=== PATIENT | female | born 1940 | race Caucasian/White ===

== ENCOUNTER 2018-04-30 06:29 | Observation (INO) ==
[2018-04-30] MEDS ORDERED: Aspirin 325 MG TABLET PO ONE (06:53)
[2018-04-30 07:05] LABS: Basophils % 0.3 %; Eosinophils # 0.2 K/mcL (0.0-0.6); Eosinophils % 2.2 %; Hematocrit 35.1 % (35.3-44.9); Immature Granulocytes % 0.3 % (0-4); Lymphocytes # 1.6 K/mcL (0.6-4.6); Lymphocytes % 18.3 %; Mean Corpuscular HGB Conc 34.2 g/dL (31.6-35.5); Mean Corpuscular Hemoglobin 33.2 pg (28.0-33.3); Mean Corpuscular Volume 97.2 fL (83.0-100.0); Mean Platelet Volume 10.1 fL (9.4-12.4); Monocytes # 0.6 K/mcL (0.0-1.3); Monocytes % 7.5 %; Neutrophils # 6.1 K/mcL (1.6-8.9); Platelet Count 221 K/mcL (140-400); Red Blood Count 3.61 M/mcL (3.82-4.97); Red Cell Distribution Width 11.9 % (11.5-14.5); Segmented Neutrophils % 71.4 %
--- NOTE | 2018-04-30 07:17 | Emergency Department Note ---
Disposition Clinical Impression: Chest pain due to CAD Disposition: Admitted As Inpatient Condition: Fair Chest Pain HPI - General Chief Complaint: ED Chest Pain Stated Complaint: chest pain Time Seen by Provider: 04/30/18 06:47 Source: patient Limitations: no limitations Vital Signs Reviewed: Yes Nursing Notes Reviewed: Yes - History of Present Illness HPI Narrative: 77 year old female with history of hypertension, [place] presents with chest pain. pt reported intermittent mild chest pain in exertion several times in the past one week. Yesterday morning, pt started moderated lower abdominal pain and followed with chest pain. It was aching sensation and lasted around 5 minutes. Pt felt sick whole day after the episode. Pt woke up this morning with chest uncomfortable as well. pt took her daily medication including Plavix and came to ER. Pt denied sweating and shortness of breath with the chest pain. Pt complained of back and left shoulder pain. pt had KS three years ago. She had a stent in heart. Nuclear stress test last year. Follows up with Human Resources Benefits Specialist Dr. Deutsch. Pt complaint: chest pain Onset (ago): week(s) (1) Duration: intermittent Onset: during exertion Pain Location: other Severity scale (1-10): 4 Quality: aching Pain Radiation: back, other (left shoulder ) Worsens with: supine Treatments prior to arrival chest pain: other (daily medications) - Related Data Home Medications Medication Instructions Recorded Confirmed Ascorbate Calcium [Vitamin C] 500 mg PO DAILY 04/30/18 04/30/18 Atorvastatin Calcium [Lipitor] 20 mg PO HS 04/30/18 04/30/18 Biotin 1 mg PO DAILY 04/30/18 04/30/18 Cholecalciferol (D-3) [Vitamin D] 1,000 unit PO DAILY 04/30/18 04/30/18 Clopidogrel [Plavix] 75 mg PO DAILY 04/30/18 04/30/18 Isosorbide MONOnitrate (24 HR) 30 mg PO DAILY 04/30/18 04/30/18 [Imdur] Levothyroxine Sodium [Levoxyl] 88 mcg PO DAILY 04/30/18 04/30/18 Loratadine [Claritin] 10 mg PO DAILY 04/30/18 04/30/18 Losartan Potassium [Cozaar] 50 mg PO DAILY 04/30/18 04/30/18 Magnesium Oxide [Magnesium] 400 mg PO DAILY 04/30/18 04/30/18 Metoprolol Succinate [Toprol Xl] 25 mg PO DAILY 04/30/18 04/30/18 Omeprazole Magnesium [Prilosec Otc] 20 mg PO HS 04/30/18 04/30/18 Allergies Allergy/AdvReac Type Severity Reaction Status Date / Time Hydromorphone [From Dilaudid] AdvReac Blurry Verified 04/30/18 08:48 Vision Constitutional: Denies: fever, chills, weakness, weight change Eyes: Denies: eye pain, eye discharge, vision change ENT ED: Denies: ear pain, throat pain, dental pain, hearing loss, epistaxis, congestion, dysphagia Cardiovascular: Reports: chest pain. Denies: palpitations, dyspnea on exertion , edema, syncope Respiratory: Denies: cough, dyspnea, wheezes, hemoptysis, stridor Gastrointestinal: Denies: abdominal pain, nausea, vomiting, diarrhea, constipation, hematemesis, melena, hematochezia Genitourinary: Denies: dysuria, frequency, hematuria, discharge Musculoskeletal: Denies: back pain, neck pain, arthralgia, myalgia Integumentary: Denies: rash, abrasion, lesions Neurological: Denies: headache, weakness, numbness, paresthesias, confusion, abnormal gait, vertigo Psychiatric: Denies: anxiety, depression, suicidal thoughts, homicidal thoughts , auditory hallucinations, visual hallucinations Endocrine: Denies: fatigue Hematological/Lymphatic: Denies: easy bleeding, easy bruising Allergic/Immunologic: Denies: facial swelling, urticaria Chest Pain PMH - Past Medical History Medical history: Reports: hypertension, myocardial infarction, thyroid disease, other Psychiatric history: Reports: no psych history - Social History Smoking Status: Never smoker Alcohol use: Reports: none Drug use: Reports: none Physical Exam - General Limitations: no limitations General appearance: alert, in no apparent distress - Head Head exam: atraumatic, normocephalic, normal inspection - Eye Eye exam: Present: normal appearance, PERRL, EOMI - ENT ENT exam: normal exam, normal oropharynx, mucous membranes moist - Neck Neck exam: Present: normal inspection, full ROM, trachea midline - Chest Chest inspection: Present: normal inspection, symmetric chest wall rise - Respiratory Respiratory exam: Present: normal lung sounds bilaterally. Absent: respiratory distress, wheezes - Cardiovascular Cardiovascular exam: Present: regular rate, normal rhythm, normal heart sounds - Abdominal Exam Abdominal exam: Present: soft, Non-Tender. Absent: tenderness, distention, guarding, rebound, rigidity - Extremities Exam Extremities exam: Present: normal inspection, full ROM. Absent: tenderness, pedal edema - Back Exam Back exam: Present: normal inspection, full ROM. Absent: tenderness - Neurological Exam Neurological exam: Present: alert, oriented X3 - Psychiatric Psychiatric exam: Present: normal affect, normal mood - Skin Skin exam: Present: warm, dry, intact, normal color Course Vital Signs Temperature 99.0 F 04/30/18 06:38 Pulse Rate 78 04/30/18 06:38 Respiratory Rate 11 04/30/18 06:38 Blood Pressure 160/77 04/30/18 06:38 O2 Sat by Pulse Oximetry 96 04/30/18 06:38 Temperature 97.9 F 04/30/18 10:35 Pulse Rate 65 04/30/18 10:35 Respiratory Rate 18 04/30/18 10:35 Blood Pressure 99/62 04/30/18 10:35 O2 Sat by Pulse Oximetry 97 04/30/18 10:35 Oxygen Delivery Oxygen Delivery Nasal Cannula Chest Pain - MDM Narrative Medical decision making narrative: 77 year old female with history of hypertension, hyperlipidemia, KS presents with chest pain. Pt reported intermittent chest pain radiate to back and left shoulder since yesterday. No shortness of breath, no sweating. Physical exam are benign, no chest wall tender to palpation, no abdomen tender. EKG: ST diminished in V2 to V5. Troponin negative. Discussed this case with Dr. Fuller , pt will be admitted to hospital for chest pain rule out KS. Spoke with Cardiology oncall Dr. Polanco. He will see the patient in hospital. 08:00 am, [facility] hospitalist. 08:[address] Byrne, pt is accepted. - Lab Data Lab results reviewed: Yes I reviewed the patient's lab results. Result diagrams: 04/30/18 06:53 04/30/18 06:53 Lab Results 04/30/18 04/30/18 04/30/18 Range/Units 06:53 06:53 06:53 WBC 8.6 (4.3-11.1) K/mcL RBC 3.61 L (3.82-4.97) M/mcL Hgb 12.0 (11.5-15.4) g/dL Hct 35.1 L (35.3-44.9) % MCV 97.2 (83.0-100.0) fL MCH 33.2 (28.0-33.3) pg MCHC 34.2 (31.6-35.5) g/dL RDW 11.9 (11.5-14.5) % Plt Count 221 (140-400) K/mcL MPV 10.1 (9.4-12.4) fL Immature Gran % 0.3 (0-4) % Seg Neutrophils % 71.4 % Lymphocytes % 18.3 % Monocytes % 7.5 % Eosinophils % 2.2 % Basophils % 0.3 % Neutrophils # 6.1 (1.6-8.9) K/mcL Lymphocytes # 1.6 (0.6-4.6) K/mcL Monocytes # 0.6 (0.0-1.3) K/mcL Eosinophils # 0.2 (0.0-0.6) K/mcL Basophils # 0.0 (0.0-0.2) K/mcL Sodium 139 (136-145) mEq/L Potassium 3.9 (3.5-5.1) mEq/L Chloride 103 (98-107) mEq/L Carbon Dioxide 28 (23-29) mEq/L BUN 17 (8-23) mg/dL Creatinine 1.03 (0.60-1.20) mg/dL Est GFR ( Amer) > 60 (> 60) Est GFR (Non-Af Amer) 52 L (> 60) BUN/Creatinine Ratio 17 (6-26) Glucose 137 H (70-105) mg/dL Calculated Osmolality 292 (280-300) Calcium 10.0 (8.6-10.3) mg/dL Total Bilirubin 0.6 (0.3-1.0) mg/dL AST 37 (13-39) Units/L ALT 30 (7-52) Units/L Alkaline Phosphatase 113 H (34-104) Units/L Troponin I < 0.03 (< 0.04) ng/mL B-Natriuretic Peptide 69 (Less than 100) pg/mL Serum Total Protein 6.9 (6.4-8.9) g/dL Albumin 4.3 (3.5-5.7) g/dL Globulin 2.6 (2.4-3.5) g/dL Albumin/Globulin Ratio 1.7 (1.1-2.2) Lipase 25 (11-82) Units/L Urine Color (Yellow) Urine Clarity (Clear) Urine pH (5.0-8.0) pH Units Ur Specific [place] (1.010-1.025) Urine Protein (Neg-Trace) mg/dL Urine Glucose (UA) (Normal) mg/dL Urine Ketones (Negative) mg/dL Urine Blood (Negative) Urine Nitrite (Negative) Urine Bilirubin (Negative) Urine Urobilinogen (Normal) mg/dL Ur Leukocyte Esterase (Negative) Urine Microscopic RBC (0-3) per hpf Urine Microscopic WBC (0-3) per hpf Ur Squamous Epith Cells (None-Few) per lpf Urine Bacteria (None-Few) per hpf Hyaline Casts (None-Few) per lpf Ur Culture Indicated? (NO) 04/30/18 Range/Units 07:50 WBC (4.3-11.1) K/mcL RBC (3.82-4.97) M/mcL Hgb (11.5-15.4) g/dL Hct (35.3-44.9) % MCV (83.0-100.0) fL MCH (28.0-33.3) pg MCHC (31.6-35.5) g/dL RDW (11.5-14.5) % Plt Count (140-400) K/mcL MPV (9.4-12.4) fL Immature Gran % (0-4) % Seg Neutrophils % % Lymphocytes % % Monocytes % % Eosinophils % % Basophils % % Neutrophils # (1.6-8.9) K/mcL Lymphocytes # (0.6-4.6) K/mcL Monocytes # (0.0-1.3) K/mcL Eosinophils # (0.0-0.6) K/mcL Basophils # (0.0-0.2) K/mcL Sodium (136-145) mEq/L Potassium (3.5-5.1) mEq/L Chloride (98-107) mEq/L Carbon Dioxide (23-29) mEq/L BUN (8-23) mg/dL Creatinine (0.60-1.20) mg/dL Est GFR ( Amer) (> 60) Est GFR (Non-Af Amer) (> 60) BUN/Creatinine Ratio (6-26) Glucose (70-105) mg/dL Calculated Osmolality (280-300) Calcium (8.6-10.3) mg/dL Total Bilirubin (0.3-1.0) mg/dL AST (13-39) Units/L ALT (7-52) Units/L Alkaline Phosphatase (34-104) Units/L Troponin I (< 0.04) ng/mL B-Natriuretic Peptide (Less than 100) pg/mL Serum Total Protein (6.4-8.9) g/dL Albumin (3.5-5.7) g/dL Globulin (2.4-3.5) g/dL Albumin/Globulin Ratio (1.1-2.2) Lipase (11-82) Units/L Urine Color Yellow (Yellow) Urine Clarity Clear (Clear) Urine pH 7.0 (5.0-8.0) pH Units Ur Specific [place] 1.013 (1.010-1.025) Urine Protein Negative (Neg-Trace) mg/dL Urine Glucose (UA) Normal (Normal) mg/dL Urine Ketones Negative (Negative) mg/dL Urine Blood Negative (Negative) Urine Nitrite Negative (Negative) Urine Bilirubin Negative (Negative) Urine Urobilinogen Normal (Normal) mg/dL Ur Leukocyte Esterase Trace H (Negative) Urine Microscopic RBC 3-5 H (0-3) per hpf Urine Microscopic WBC 0-3 (0-3) per hpf Ur Squamous Epith Cells Moderate H (None-Few) per lpf Urine Bacteria Moderate H (None-Few) per hpf Hyaline Casts None Seen (None-Few) per lpf Ur Culture Indicated? YES A (NO) - Radiology Data Radiology results reviewed: Yes I reviewed the patient's radiology results. XR/XR chest 2V IMPRESSION: No acute cardiopulmonary disease. - EKG Data EKG attestation: Yes I reviewed and interpreted this EKG. EKG shows normal: sinus rhythm Rate: normal ST segment depression in: v2, v3, v4, v5
[2018-04-30 07:25] LABS: Troponin I < 0.03 ng/mL (< 0.04)
[2018-04-30 07:26] LABS: Alanine Aminotransferase 30 Units/L (7-52); Albumin 4.3 g/dL (3.5-5.7); Albumin/Globulin Ratio 1.7 (1.1-2.2); Alkaline Phosphatase 113 Units/L (34-104); Aspartate Amino Transferase 37 Units/L (13-39); BUN/Creatinine Ratio 17 (6-26); Bilirubin,Total 0.6 mg/dL (0.3-1.0); Blood Urea Nitrogen 17 mg/dL (8-23); Carbon Dioxide 28 mEq/L (23-29); Chloride 103 mEq/L (98-107); Globulin 2.6 g/dL (2.4-3.5); Glucose 137 mg/dL (70-105); Lipase 25 Units/L (11-82); Osmolality,Calculated 292 (280-300); Potassium 3.9 mEq/L (3.5-5.1); Sodium 139 mEq/L (136-145); Total Protein 6.9 g/dL (6.4-8.9); eGFR For Non-African Americans 52 (> 60)
[2018-04-30 08:40] LABS: Bilirubin,Urine Negative (Negative); Blood,Urine Negative (Negative); Clarity,Urine Clear (Clear); Color,Urine Yellow (Yellow); Glucose,Urine (UA) Normal (Normal); Ketones,Urine Negative (Negative); Leukocyte Esterase,Urine Trace (Negative); Nitrite,Urine Negative (Negative); Protein,Urine Negative (Neg-Trace); Specific Gravity,Urine 1.013 (1.010-1.025); Urobilinogen,Urine Normal (Normal)
[2018-04-30 08:43] LABS: Bacteria,Urine Moderate per hpf (None-Few); Hyaline Casts,Urine None Seen per lpf (None-Few); Squamous Epithelial Cell,Urine Moderate per lpf (None-Few); WBC,Urine 0-3 per hpf (0-3)
[2018-04-30] MEDS ORDERED: Naloxone 0.4 MG/ML INJ IVP PRN (09:48)
--- NOTE | 2018-04-30 09:57 | Internal Med History&Physical ---
Date of Encounter: 04/30/18 Time of Encounter: 11:57 Internal Medicine - H&P: HPI Chief complaint: chest pain, jaw pain History of present illness: Ms. Lewis is a 77 year old female with PMHx of HTN, HLD, [place] in december 2013 when she had 2 stents placed, came in with complain of chest pain for several times in past week. She had abdominal pain which was severe and lasted for few minutes which radiated to her chest. She also had jaw discomfort and pain in between her shoulder blades. She had the jaw discomfort for many months for which she has been using Nitroglycerin for relief. She describes pain as constant in nature about 4-6 intensity. She was sitting while she had these chest pain. She had nuclear stress test last year which was normal. She denies any shortness of breath. She mentions she has history of anemia for which she takes B12 as well as 1 episode of diarrhea which was non bloody. Denies any palpitation, lightheadedness, dizziness or headache. Denies any urinary complains. Past Med Surg Social Fam HX - Past Medical History Medical history: CVA, hypertension, myocardial infarction, thyroid disease, TIA , other Additional medical history: colitis Psychiatric history: no psych history - Past Surgical History Surgical History: cholecystectomy, other Additional surgical history: skin cancer surgeries - Social History Smoking Status: Never smoker Smokeless Tobacco Status: No Alcohol use: none Drug use: none Current living situation: With Family - Family History Mother Hx Family Cardiac Disorders: Yes (HTN) Hx Family GI Disorders: Yes (Gallbladder) Hx Family Endocrine Disorder: Yes (DM) Father Hx Family Cardiac Disorders: Yes Hx Family Respiratory Disorders: Yes Hx Family Endocrine Disorder: Yes (DM) Internal Medicine - H&P: Meds Ascorbate Calcium [Vitamin C] 500 mg PO DAILY 04/30/18 [History] Atorvastatin Calcium [Lipitor] 20 mg PO HS 04/30/18 [History] Biotin 1 mg PO DAILY 04/30/18 [History] Cholecalciferol (D-3) [Vitamin D] 1,000 unit PO DAILY 04/30/18 [History] Clopidogrel [Plavix] 75 mg PO DAILY 04/30/18 [History] Isosorbide MONOnitrate (24 HR) [Imdur] 30 mg PO DAILY 04/30/18 [History] Levothyroxine Sodium [Levoxyl] 88 mcg PO DAILY 04/30/18 [History] Loratadine [Claritin] 10 mg PO DAILY 04/30/18 [History] Losartan Potassium [Cozaar] 50 mg PO DAILY 04/30/18 [History] Magnesium Oxide [Magnesium] 400 mg PO DAILY 04/30/18 [History] Metoprolol Succinate [Toprol Xl] 25 mg PO DAILY 04/30/18 [History] Omeprazole Magnesium [Prilosec Otc] 20 mg PO HS 04/30/18 [History] 3 Allergy/AdvReac Type Severity Reaction Status Date / Time Hydromorphone [From Dilaudid] AdvReac Blurry Verified 04/30/18 08:48 [employer] Systems PM: A 10-system review of systems was performed and is negative for pertinent findings except as documented above in the HPI. - Constitutional Vitals: Temp Pulse Resp BP Pulse Ox 99.0 F 69 18 131/67 98 04/30/18 06:38 04/30/18 07:14 04/30/18 09:32 04/30/18 09:32 04/30/18 07:14 General appearance: Present: A&O X 3, no acute distress Exam: Gen: In no acute distress. AOx3. HEENT: PEARLA, no thyromegaly, trachea midline. No JVD, no cervical lymphadenopathy RS: Air entry equal bilaterally, No adventitious lung sounds CVS: S1,S2 normal, RRR, No MRG, No chest tenderness Abdomen: Soft, non tender, non distended, no organomegaly Ext: No pedal edema, Normal pulses bilaterally Neuro: No focal deficits, Cranial nerves grossly unremarkable, No focal motor or sensory deficits Skin: no rash or ulcers noted. Internal Med - H&P Results - Labs CBC & Chem 7: 04/30/18 06:53 04/30/18 06:53 - Assessment and plan (1) Unstable angina Current Visit: Yes Status: Acute Assessment and plan: Chest pain likely unstable angina in patient with h/o CAD - Trend troponin - Continue home Aspirin, plavix statin, imdur and betablocker. - ECHO - Cardiology consulted (2) HTN (hypertension) Current Visit: Yes Status: Acute Assessment and plan: continue home Losartan and Imdur Qualifiers: Qualified Code(s): I10 - Essential (primary) hypertension (3) DVT prophylaxis Current Visit: Yes Status: Acute Assessment and plan: Lovenox sc (4) Hypothyroidism Current Visit: Yes Status: Acute Assessment and plan: continue home levothyroxin. Qualifiers: Qualified Code(s): E03.9 - Hypothyroidism, unspecified - Time Spent With Patient Total time spent is greater than 50% in coordination of care (as documented) at patient's floor/unit and/or counseling patient:
--- NOTE | 2018-04-30 11:03 | Cardiology Consult Note ---
Date of Encounter: 04/30/18 Time of Encounter: 10:54 Assessment and Plan (1) Unstable angina Current Visit: Yes Status: Acute Chest pain concerning for unstable angina. Chest, back , and, jaw pain with exertion. H/o NM and CAD. Trend troponin. EKG shows SR with non-specific ST changes. Stress test 02/2017 negative for ischemia. Medical management verses LHC reviewed. [facility] recommended and she agrees. [facility] risk verses benefit reviewed. She agrees to proceed. Check TTE. Asa, statin, and bb, plavix. NTG PRN. (2) CAD (coronary artery disease) Current Visit: Yes Status: Acute H/o NM in 2013. She recieved PTCA to her 99 % stenosis in the RPDA down to 70% and staged PCI to the 70% stenosed mLAD there was a 70% stenosis in the 1st Dx artery and 80% stenosis in the 1st OM remaining both small vessels. Continue plavix, statin, and bb. States she stopped taking asa due to stomach irritation but is willing to re-start taking. NTG PRN. Qualifiers: Coronary Disease-Associated Artery/Lesion type: [place] artery [place] vs. transplanted heart: [place] heart Associated angina: with unstable angina Qualified Code(s): I25.110 - Atherosclerotic heart disease of [place] coronary artery with unstable angina pectoris Discussion w patient/family: The assessment and plan as outlined above was discussed with the patient and/or family members who expressed understanding and agreement. All questions were answered. Thank you for involving us in the care of your patient. Please call with any questions. History of Present Illness Consult date: 04/30/18 Requesting physician: Deb Byrne Consult reason: Chest pain concerning for unstable angina Chief complaint: Chest pain, jaw pain, back pain History of present illness: Ms. Lewis is a 77 year old female with past medical history of NM and PCI in 2013 , HTN, and HLD who presents with increasing intermittent chest pain over the past year. Reports pain increased over the past month. Pain starts in her left chest and radiates to her back and more recently to her jaw. Pain increases with exertion and improves with rest. States she takes NTG PRN but has not tried any in the past month. Yesterday she developed abdominal pain that radiated to her chest and bilateral shoulders. She continues to have pain between her shoulder blades on my exam. Cardiology consulted for unstable angina. Past Med Surg Social Fam HX - Past Medical History Attestation: Yes The following information was validated with the patient. Medical history: hypertension, myocardial infarction, thyroid disease, other Additional medical history: colitis Psychiatric history: no psych history - Social History Smoking Status: Never smoker Smokeless Tobacco Status: No Alcohol use: none Drug use: none - Family History Mother Hx Family Cardiac Disorders: Yes (HTN) Hx Family GI Disorders: Yes (Gallbladder) Hx Family Endocrine Disorder: Yes (DM) Father Hx Family Cardiac Disorders: Yes Hx Family Respiratory Disorders: Yes Hx Family Endocrine Disorder: Yes (DM) Medications and Allergies Ascorbate Calcium [Vitamin C] 500 mg PO DAILY 04/30/18 [History] Atorvastatin Calcium [Lipitor] 20 mg PO HS 04/30/18 [History] Biotin 1 mg PO DAILY 04/30/18 [History] Cholecalciferol (D-3) [Vitamin D] 1,000 unit PO DAILY 04/30/18 [History] Clopidogrel [Plavix] 75 mg PO DAILY 04/30/18 [History] Isosorbide MONOnitrate (24 HR) [Imdur] 30 mg PO DAILY 04/30/18 [History] Levothyroxine Sodium [Levoxyl] 88 mcg PO DAILY 04/30/18 [History] Loratadine [Claritin] 10 mg PO DAILY 04/30/18 [History] Losartan Potassium [Cozaar] 50 mg PO DAILY 04/30/18 [History] Magnesium Oxide [Magnesium] 400 mg PO DAILY 04/30/18 [History] Metoprolol Succinate [Toprol Xl] 25 mg PO DAILY 04/30/18 [History] Omeprazole Magnesium [Prilosec Otc] 20 mg PO HS 04/30/18 [History] 3 Allergy/AdvReac Type Severity Reaction Status Date / Time Hydromorphone [From Dilaudid] AdvReac Blurry Verified 04/30/18 08:48 [employer] Systems Review: The remainder of the systems were reviewed and are negative Physical Examination Vital Signs, Last 4 Hours Temp Pulse Resp BP Pulse Ox 04/30/18 10:35 97.9 F 65 18 99/62 97 04/30/18 09:32 18 131/67 General: Conversant, No Apparent Distress HEENT: Atraumatic, Normocephaly, Mucus Membranes Moist Neck: No JVD, Normal carotid pulses Cardiac: Reg Rate and Rhythm, Normal S1 and S2, No Murmur Lungs: Normal Breath Sounds, No Wheeze, Rales, Rhonchi Neuro: Alert and responsive, No focal deficits noted Abdomen: Soft, Non-Tender Skin: No rashes noted on visualized skin Musculoskeletal: No Chest Wall Tenderness Extremities: No Clubbing, No Cyanosis, No Edema, Normal Pulses Results 04/30/18 06:53 04/30/18 06:53 - Imaging and Cardiology Stress Test: report reviewed Echo: report reviewed Cardiac cath: report reviewed - EKG Interpretation EKG results cardiology: personally reviewed Consult Discharge Plan - Plan Referrals: Trupti Vanegas CNP [Primary Care Provider] -
--- NOTE | 2018-04-30 13:01 | Electrocardiograph Report ---
[facility] Test Date: 2018-04-30 Pat Name: Anita Lewis Department: EXAM1 Room: 3B32 Gender: F [employer]: : 1940 Requested By: Torsten Mansfield Order Number: [id number] Reading MD: Vasquez Weir Measurements Intervals [place] Rate: 81 P: 31 UT: 168 QRS: -17 QRSD: 101 T: 112 QT: 361 QTc: 419 Interpretive Statements Sinus rhythm Borderline left axis deviation Abnormal T, consider ischemia, lateral leads Electronically Signed On 04-30-2018 12:59:11 EDT by Vasquez Weir
[2018-04-30] MEDS ORDERED: Heparin 1,000 UNITS/500 mL 500 ML ONE (15:33)
[2018-04-30] MEDS ORDERED: 0.9 % Sodium Chloride 1,000 ML ONE ×3 (15:33→22:03)
[2018-04-30] MEDS ORDERED: ISOVUE-370 200 ML INFUS..BTL IV ONE ×3 (15:33→16:59)
[2018-04-30] MEDS ORDERED: *HR* Heparin 10,000 UNIT/10 ML VIAL ONE (15:33)
[2018-04-30] MEDS ORDERED: Nitroglycerin 1,000 MCG/10 ML VIAL IV ONE (15:49)
--- NOTE | 2018-04-30 16:02 | Pre-Sedation Evaluation ---
Pre-sedation evaluation - Pre-sedation checklist Date of procedure: 04/30/18 Procedure: [facility] Recent Vitals: Last Vital Signs Temp 97.9 F 04/30/18 15:30 Pulse 68 04/30/18 15:30 Resp 16 04/30/18 15:30 BP 153/70 04/30/18 15:30 Pulse Ox 95 04/30/18 15:30 H&P (including ROS) documented in medical record: Yes Previous reaction to sedatives/anesthetics: No Dietary Status: NPO after Midnight Airway Assessment: Patient can open mouth completely, TMJ function normal, Micrognathia (under-bite, receding chin) absent, Neck with adequate range of motion Dentition: No loose teeth or bridges Possible difficult airway: No ASA Classification *see protocol: CLASS II-Mild systemic disease Plan of Care: Pt appropriate candidate for procedure/moderate/conscious sedation , Risks/benefits of procedure/sedation discussed w/ patient/family Cardiac Registry (Cardio Only) - Functional Capacity Functional Capacity: < 4 METS - Clincal Frailty Scale Clinical Frailty Scale: Vulnerable
[2018-04-30] MEDS ORDERED: *HR* FentaNYL (PF) 100 MCG/2 ML VIAL ONE (16:14)
[2018-04-30] MEDS ORDERED: *HR* Midazolam HCl 2 MG/2 ML VIAL ONE ×2 (16:14→16:40)
[2018-04-30] MEDS ORDERED: *HR* Bivalirudin 250 MG VIAL IVC ONE ×2 (16:34→17:01)
[2018-04-30] MEDS ORDERED: *HR* Ticagrelor 90 MG TABLET ONE (17:01)
[2018-04-30] MEDS ORDERED: Nitroglycerin 0.4 MG TAB.SUBL SL PRN (19:43)
[2018-04-30] MEDS ORDERED: *HR* Atropine Sulfate 1 MG/10 ML SYRINGE ONE (22:03)
[2018-04-30] MEDS ORDERED: Acetaminophen 325 MG TABLET PO PRN (22:08)
[2018-05-01] MEDS: *HR* Enoxaparin 40 MG/0.4 ML SYRINGE SQ SCH (06:18)
[2018-05-01] MEDS: Aspirin 81 MG TAB.CHEW PO SCH (08:20)
[2018-05-01] MEDS: Cholecalciferol (D-3) 1,000 UNIT TABLET PO SCH (08:20)
[2018-05-01] MEDS: Isosorbide MONOnitrate (24 HR) 30 MG TAB.ER.24H PO SCH (08:21)
[2018-05-01] MEDS: Magnesium Oxide 400 MG TABLET PO SCH (08:21)
[2018-05-01] MEDS ORDERED: Metoprolol XL (24 HR) Succ 25 MG TAB.ER.24H PO SCH (09:00)
--- NOTE | 2018-05-01 10:40 | Internal Med Progress Note ---
Hospitalist Progress Note - Encounter Date of Encounter: 05/01/18 Time of Encounter: 10:37 - Subjective Interval History: 77 F admitted and being managed for Unstable angina She stated no chest pain at this time She did have a LHC done last night (official report pending), but she reports having received 3 stents, no abdominal pain, access site is clean and not bleeding No events on tele We are awaiting ECHO According to the patient, the administrative support assoc had told her she will need to stay 2 nights, cardio eval pending this a.m UA is also dirty, cultures pending, she is asymptomatic - Exam Vitals: Temp Pulse Resp BP Pulse Ox 97.7 F 77 16 127/67 95 05/01/18 08:25 05/01/18 08:25 05/01/18 08:25 05/01/18 08:25 05/01/18 08:25 Exam: Gen: In no acute distress. AOx3. HEENT: [place]AR[place], no thyromegaly, trachea midline. No JVD, no cervical lymphadenopathy RS: Air entry equal bilaterally, No adventitious lung sounds CVS: S1,S2 normal, RRR, No MRG, No chest tenderness Abdomen: Soft, non tender, non distended, no organomegaly Ext: No pedal edema, Normal pulses bilaterally Neuro: No focal deficits, Cranial nerves grossly unremarkable, No focal motor or sensory deficits Groin: Access Right femoral site, clean and dry dressing, no hematoma Skin: no rash or ulcers noted. - Assessment and Plan (1) Unstable angina Current Visit: Yes Status: Acute Assessment and Plan: s/p LHC with stent placement Continue DapT Continue Lipitor, BB, ARB Follow ECHO cardio following (2) HTN (hypertension) Current Visit: Yes Status: Chronic Assessment and Plan: controlled, continue home Losartan and Imdur (3) DVT prophylaxis Current Visit: Yes Status: Acute Assessment and Plan: Lovenox sc (4) Hypothyroidism Current Visit: Yes Status: Chronic Assessment and Plan: continue home levothyroxin. (5) Abnormal urinalysis Current Visit: Yes Status: Acute Assessment and Plan: asymptomatic Reflexed to culture, follow results No fever or leukocytosis - Time Spent with Patient Total time spent is greater than 50% in coordination of care (as documented) at patient's floor/unit and/or counseling patient: Plan of Care Discussed with: patient Internal Medicine: Result - Labs CBC & Chem 7: 04/30/18 06:53 04/30/18 06:53 Labs: Cardiac Enzymes 04/30/18 Range/Units 10:15 Troponin I < 0.03 (< 0.04) ng/mL Consult Discharge Plan - Plan Referrals: Trupti Vanegas CNP [Primary Care Provider] - 05/09/18 11:00 am (2) HTN (hypertension) Qualifiers: Hypertension type: essential hypertension Qualified Code(s): I10 - Essential (primary) hypertension (4) Hypothyroidism Qualifiers: Hypothyroidism type: unspecified Qualified Code(s): E03.9 - Hypothyroidism, unspecified
[2018-05-01] MEDS ORDERED: Metoprolol XL (24 HR) Succ 25 MG TAB.ER.24H PO ONE (11:10)
[2018-05-01 11:52] LABS: Basophils % 0.2 %; Eosinophils # 0.2 K/mcL (0.0-0.6); Eosinophils % 2.3 %; Hematocrit 33.8 % (35.3-44.9); Hemoglobin 11.3 g/dL (11.5-15.4); Immature Granulocytes % 0.2 % (0-4); Lymphocytes # 1.9 K/mcL (0.6-4.6); Lymphocytes % 23.8 %; Mean Corpuscular HGB Conc 33.4 g/dL (31.6-35.5); Mean Corpuscular Hemoglobin 32.9 pg (28.0-33.3); Mean Corpuscular Volume 98.5 fL (83.0-100.0); Mean Platelet Volume 10.1 fL (9.4-12.4); Monocytes # 0.6 K/mcL (0.0-1.3); Monocytes % 7.8 %; Neutrophils # 5.4 K/mcL (1.6-8.9); Platelet Count 217 K/mcL (140-400); Red Blood Count 3.43 M/mcL (3.82-4.97); Red Cell Distribution Width 12.4 % (11.5-14.5); Segmented Neutrophils % 65.7 %
[2018-05-01 12:07] LABS: BUN/Creatinine Ratio 13 (6-26); Blood Urea Nitrogen 13 mg/dL (8-23); Calcium 9.6 mg/dL (8.6-10.3); Carbon Dioxide 29 mEq/L (23-29); Chloride 103 mEq/L (98-107); Glucose 120 mg/dL (70-105); Osmolality,Calculated 289 (280-300); Potassium 4.1 mEq/L (3.5-5.1); Sodium 139 mEq/L (136-145); eGFR For Non-African Americans 51 (> 60)
--- NOTE | 2018-05-01 12:12 | Cardiology Progress Note ---
Date of Encounter: 05/01/18 Time of Encounter: 12:08 Assessment and Plan (1) Unstable angina Current Visit: Yes Status: Acute Presented with chest pain concerning for unstable angina. S/p [facility] with PCI to the 1st DX artery, OM, and Lcx artery. EF preserved. Final report pending. There was no complication from the procedure. Denies recurrent chest pain. Reported mild aching in her shoulders this morning but felt better after repositioning. EKG-SR with non-specefic t wave changes. No acute T wave changes. Mild ecchymosis at right femoral access site. Continue to monitor. Importance of DAPT with asa and plavix uninterrupted for minimum of one year discussed and she voiced understanding. Atorvastatin increased to 40 mg daily and Toprol increased to 50 mg daily to optimize medical therapy. Activity restrictions reviewed as stated above. Cardiac rehab ordered. If no concerning findings on TTE cardiology will sign off. (2) CAD (coronary artery disease) Current Visit: Yes Status: Acute H/o [place] in [address] with [address] [facility] this admit for unstable angina. Medical management as described above. noted mild troponin after PCI, to be expected. Qualifiers: Coronary Disease-Associated Artery/Lesion type: [place] artery [place] vs. transplanted heart: [place] heart Associated angina: with unstable angina Qualified Code(s): I25.110 - Atherosclerotic heart disease of [place] coronary artery with unstable angina pectoris Discussion w patient/family: The assessment and plan as outlined above was discussed with the patient and/or family members who expressed understanding and agreement. All questions were answered. Thank you for involving us in the care of your patient. Please call with any questions. Subjective Principal diagnosis: unastable angina Interval history: Ms. Lewis is sitting in her chair. Denies recurrent chest pain. States that her shoulders were aching some this morning while laying in bed but improved when she got out of bed. Daughter says that it is not unusual for her to have back pain at times. Objective Vital Signs, Last 4 Hours Temp Pulse Resp BP Pulse Ox 05/01/18 11:46 72 18 135/64 96 05/01/18 08:25 97.7 F 77 16 127/67 95 General: Conversant, No Apparent Distress HEENT: Atraumatic, Normocephaly, Mucus Membranes Moist Neck: No JVD, Normal carotid pulses Cardiac: Reg Rate and Rhythm, Normal S1 and S2, No Murmur Lungs: Normal Breath Sounds, No Wheeze, Rales, Rhonchi Neuro: Alert and responsive, No focal deficits noted Abdomen: Soft, Non-Tender Skin: No rashes noted on visualized skin Musculoskeletal: No Chest Wall Tenderness Extremities: No Clubbing, No Cyanosis, Normal Pulses, Other (Right groin with mild ecchymosis, pea size knot area felt above femoral access. Mildly tender to palpation. ) Results 05/01/18 11:25 05/01/18 11:25 Lab Results 05/01/18 05/01/18 05/01/18 10:12 11:25 11:25 WBC 8.2 Hgb 11.3 L Hct 33.8 L Plt Count 217 Sodium 139 Potassium 4.1 Chloride 103 Carbon Dioxide 29 BUN 13 Creatinine 1.04 Glucose 120 H Calcium 9.6 Troponin I 0.10 H* - Imaging and Cardiology Echo: pending, report reviewed Cardiac cath: report reviewed - EKG Interpretation EKG results cardiology: personally reviewed Consult Discharge Plan - Plan Referrals: Trupti Vanegas CNP [Primary Care Provider] - 05/09/18 11:00 am
[2018-05-01] MEDS ORDERED: Perflutren Lipid Microsphere 1.3 ML in 0.9 % Sodium Chloride 8.7 ML IVP ONE (14:25)
--- NOTE | 2018-05-01 15:32 | Event Note ---
Date of Encounter: 05/01/18 Time of Encounter: 15:27 - Cardiology Event Note TTE reviewed with LVEF 60%. Mild left ventricular diastolic dysfunction. Mild aortic regurgitation. Dilated Sinuses of Valsalva measures 4.1 cm. Remainder of aortic root normal in size. No segmental wall motion abnormalities noted. For dilated sinus of valsalva, can consider chest CTA. Cardiology will sign off and will follow in outpatient setting. Follow up set.
--- NOTE | 2018-05-01 18:04 | Electrocardiograph Report ---
[place] [id number] Test Date: 2018-04-30 Pat Name: Anita Lewis Department: 110 Room: 2N03 Gender: F Complaint Operator: Alexandra : 1940 Requested By: Rochelle Juarez Order Number: [id number] Reading MD: Alen Deutsch Measurements Intervals [place] Rate: 66 P: 76 CA: 176 QRS: 18 QRSD: 92 T: 127 QT: 377 QTc: 390 Interpretive Statements SINUS RHYTHM ST DEVIATION AND MODERATE T-WAVE ABNORMALITY, CONSIDER ANTEROLATERAL ISCHEMIA Electronically Signed On 05-01-2018 18:02:59 EDT by Alen Deutsch
[2018-05-02] MEDS: *HR* Enoxaparin 40 MG/0.4 ML SYRINGE SQ SCH (06:36)
[2018-05-02] MEDS: Aspirin 81 MG TAB.CHEW PO SCH (08:50)
[2018-05-02] MEDS: Magnesium Oxide 400 MG TABLET PO SCH (08:50)
[2018-05-02] MEDS: Cholecalciferol (D-3) 1,000 UNIT TABLET PO SCH (08:51)
[2018-05-02] MEDS: Isosorbide MONOnitrate (24 HR) 30 MG TAB.ER.24H PO SCH (08:51)
--- NOTE | 2018-05-02 08:58 | Internal Med Progress Note ---
Hospitalist Progress Note - Encounter Date of Encounter: 05/02/18 Time of Encounter: 08:54 - Subjective Interval History: 77 F admitted and being managed for Unstable angina s/p C with stent placement ECHO noted-EF is preserved, dilated sinuses of vaslava She endorsed some frequency and back pain but no dysuria, prior to admission Urine culture is growing GPC and GNR-will start ceftriaxone and await final sensitivity - Exam Vitals: Temp Pulse Resp BP Pulse Ox 98.2 F 72 16 139/86 95 05/02/18 06:49 05/02/18 06:49 05/02/18 06:49 05/02/18 06:49 05/02/18 06:49 Exam: Gen: In no acute distress. AOx3. HEENT: [place], no thyromegaly, trachea midline. No JVD, no cervical lymphadenopathy RS: Air entry equal bilaterally, No adventitious lung sounds CVS: S1,S2 normal, RRR, No MRG, No chest tenderness Abdomen: Soft, non tender, non distended, no organomegaly Ext: No pedal edema, Normal pulses bilaterally Neuro: No focal deficits, Cranial nerves grossly unremarkable, No focal motor or sensory deficits Groin: Access Right femoral site, clean and dry dressing, no hematoma Skin: no rash or ulcers noted. - Assessment and Plan (1) UTI (urinary tract infection) Current Visit: Yes Status: Acute Assessment and Plan: Urine culture with GPC and GNR Started on Ceftriaxone IV 1g daily Await final sensitivity patient is not septic (2) Unstable angina Current Visit: Yes Status: Acute Assessment and Plan: s/p LHC with stent placement Continue DapT Continue Lipitor, BB, ARB ECHO noted for dilated sinuses of vasalva, but normal aortic root, EF preserved Cardiology signed off, continue current management (3) HTN (hypertension) Current Visit: Yes Status: Chronic Assessment and Plan: controlled on current meds, continue same (4) DVT prophylaxis Current Visit: Yes Status: Acute Assessment and Plan: Lovenox sc (5) Hypothyroidism Current Visit: Yes Status: Chronic Assessment and Plan: continue home levothyroxin. (6) CAD (coronary artery disease) Current Visit: Yes Status: Chronic Assessment and Plan: as in unstable angina - Time Spent with Patient Total time spent is greater than 50% in coordination of care (as documented) at patient's floor/unit and/or counseling patient: Plan of Care Discussed with: patient Internal Medicine: Result - Labs CBC & Chem 7: 05/01/18 11:25 05/01/18 11:25 Labs: Short CBC 05/01/18 Range/Units 11:25 WBC 8.2 (4.3-11.1) K/mcL Hgb 11.3 L (11.5-15.4) g/dL Hct 33.8 L (35.3-44.9) % Plt Count 217 (140-400) K/mcL Neutrophils # 5.4 (1.6-8.9) K/mcL BMP 05/01/18 11:25 Sodium 139 Potassium 4.1 Chloride 103 Carbon Dioxide 29 BUN 13 Creatinine 1.04 Glucose 120 H Calcium 9.6 Cardiac Enzymes 05/01/18 Range/Units 10:12 Troponin I 0.10 H* (< 0.04) ng/mL - Impressions Impressions Echocardiogram 05/01/18 19:42 Impressions: LVEF 60%. Normal LV chamber size, wall thickness and function. Mild left ventricular diastolic dysfunction. Normal right ventricular structure and function. Mild aortic regurgitation. Unable to estimate RVSP due to lack of TR jet. Dilated Sinuses of Valsalva measures 4.1 cm. Remainder of aortic root normal in size. Left Ventricular Wall Motion: Rest Echo Findings All wall segments showed normal motion. Findings: Study Quality * Technically adequate exam. ECG Findings * Normal sinus rhythm. Left Ventricle * LVEF 60%. * Normal LV chamber size, wall thickness and function. * Mild left ventricular diastolic dysfunction. Right Ventricle * Normal right ventricular structure and function. Left Atrium * Normal left atrial size. Right Atrium * Normal right atrial size. Aortic Valve * Trileaflet aortic valve. * Mildly sclerotic aortic valve leaflets. * Mild aortic regurgitation. * No aortic stenosis. Mitral Valve * Normal mitral valve structure and function. * No mitral regurgitation. * No mitral stenosis. Tricuspid Valve * Normal tricuspid valve structure and function. * No tricuspid regurgitation. * Unable to estimate RVSP due to lack of TR jet. Pulmonic Valve * Pulmonic valve is not well visualized. * No pulmonic regurgitation. Aorta * Dilated Sinuses of Valsalva measures 4.1 cm. Remainder of aortic root normal in size. Pericardium * The pericardium appears normal. IVC * The IVC is not well evaluated. Pulmonary Artery * Pulmonary artery not well visualized. Consult Discharge Plan - Plan Referrals: Will,Trupti B, OUTSIDE [employer]ESPERSON [Primary Care Provider] - 05/09/18 11:00 am (1) UTI (urinary tract infection) Qualifiers: Urinary tract infection type: acute cystitis Hematuria presence: without hematuria Qualified Code(s): N30.00 - Acute cystitis without hematuria (3) HTN (hypertension) Qualifiers: Hypertension type: essential hypertension Qualified Code(s): I10 - Essential (primary) hypertension (5) Hypothyroidism Qualifiers: Hypothyroidism type: unspecified Qualified Code(s): E03.9 - Hypothyroidism, unspecified (6) CAD (coronary artery disease) Qualifiers: Coronary Disease-Associated Artery/Lesion type: [place] artery [place] vs. transplanted heart: [place] heart Associated angina: with unstable angina Qualified Code(s): I25.110 - Atherosclerotic heart disease of [place] coronary artery with unstable angina pectoris
[2018-05-02] MEDS ORDERED: Metoprolol XL (24 HR) Succ 25 MG TAB.ER.24H PO SCH (09:00)
[2018-05-02] MEDS ORDERED: cefTRIAXone 1,000 MG in Water for inj. (sterile) 20 ML 10 ML IVP SCH (09:00)
[2018-05-02 10:49] VITALS: BP 122/53
--- NOTE | 2018-05-02 12:09 | Discharge Summary ---
- NOTES TO OUTPATIENT PROVIDER Notes to Outpatient Provider: Admitted for Unstable angina and UTI. S/P LHC with stent placement. ASA has been added to home regimen, Toprol has been increased to 50mg daily, and Lipitor has been increased to 50mg daily, she is also discharged with OMnicef for 3 days for management of E.coli UTI. Follow up with PCp and Cardiology Date of Encounter: 05/02/18 Time of Encounter: 12:06 - Discharge Diagnosis (1) UTI (urinary tract infection) Priority: Primary Status: Acute Qualifiers: Urinary tract infection type: acute cystitis Hematuria presence: without hematuria Qualified Code(s): N30.00 - Acute cystitis without hematuria (2) Unstable angina Priority: Primary Status: Acute (3) HTN (hypertension) Priority: Secondary Status: Chronic Qualifiers: Hypertension type: essential hypertension Qualified Code(s): I10 - Essential (primary) hypertension (4) DVT prophylaxis Priority: Primary Status: Resolved (5) Hypothyroidism Priority: Secondary Status: Chronic Qualifiers: Hypothyroidism type: unspecified Qualified Code(s): E03.9 - Hypothyroidism , unspecified (6) CAD (coronary artery disease) Priority: Secondary Status: Chronic Qualifiers: Coronary Disease-Associated Artery/Lesion type: [place] artery [place] vs. transplanted heart: [place] heart Associated angina: with unstable angina Qualified Code(s): I25.110 - Atherosclerotic heart disease of [place] coronary artery with unstable angina pectoris Hospital course: Ms. Lewis is a 77 F admitted and being managed for Unstable angina s/p [facility] with stent placement to the 1st DX artery, OM, and Lcx artery. EF preserved ECHO noted-EF is preserved, dilated sinuses of vaslava, Trop peaked at 0.11 ( post-cath) Incidental finding of abnormal UA which was cultured, patient endorsed some frequency, patient has E.Coli wang-sensitive in her urine She is chest pain free, ambulatory and clinically stable to be discharged home She is discharged on OMnicef for 3 days, as well as new prescriptions for ASA, Lipitor and Metoprolol Follow up with PCP and Cardiology as out-patient Discharge discussed with: patient, family, nurse - Time Spent with Patient Total time spent providing and/or coordinating discharge services: Less than 30 minutes - Discharge Medications Prescriptions: Aspirin 81 mg PO DAILY #30 tab.chew Atorvastatin [Lipitor] 40 mg PO HS #30 tablet Home Medications: Ascorbate Calcium [Vitamin C] 500 mg PO DAILY 04/30/18 [History] Biotin 1 mg PO DAILY 04/30/18 [History] Cholecalciferol (D-3) [Vitamin D] 1,000 unit PO DAILY 04/30/18 [History] Clopidogrel [Plavix] 75 mg PO DAILY 04/30/18 [History] Isosorbide MONOnitrate (24 HR) [Imdur] 30 mg PO DAILY 04/30/18 [History] Levothyroxine Sodium [Levoxyl] 88 mcg PO DAILY 04/30/18 [History] Loratadine [Claritin] 10 mg PO DAILY 04/30/18 [History] Losartan Potassium [Cozaar] 50 mg PO DAILY 04/30/18 [History] Magnesium Oxide [Magnesium] 400 mg PO DAILY 04/30/18 [History] Omeprazole Magnesium [Prilosec Otc] 20 mg PO HS 04/30/18 [History] Aspirin 81 mg PO DAILY #30 tab.chew 05/02/18 [Rx] Atorvastatin [Lipitor] 40 mg PO HS #30 tablet 05/02/18 [Rx] Allergies/Adverse Reactions: 3 Allergy/AdvReac Type Severity Reaction Status Date / Time Hydromorphone [From Dilaudid] AdvReac Blurry Verified 04/30/18 08:48 Vision Date of admission: 04/30/18 08:40 Primary care physician: Trupti Vanegas CNP Consults: 04/30/18 17:15 Consult to Cardiac Rehabilitation-Phase1 [CONS] Routine Comment: Reason for Consult: post op PCI Call Completed: Yes Discharging clinician: Addy Watts Anticipated date of discharge: 05/02/18 - Constitutional Vitals: Temp Pulse Resp BP Pulse Ox 97.8 F 60 18 122/53 96 05/02/18 10:48 05/02/18 10:48 05/02/18 10:48 05/02/18 10:48 05/02/18 10:48 General appearance: Present: A&O X 3, no acute distress Exam: see below - Head Head exam: Present: atraumatic, normocephalic - Eye Eye exam: Present: PERRL, conjuntiva pink, sclera anicteric Pupils: Present: PERRL - Neck Neck exam general surgery: Present: supple, trachea midline. Absent: lymphadenopathy - Respiratory Respiratory exam: Present: CTAB. Absent: accessory muscle use, rales, rhonchi, wheezes - Cardiovascular Cardiovascular exam: Present: RRR, +S1, +S2. Absent: diastolic murmur, gallop, rubs, systolic murmur - GI/Abdominal GI/Abdominal exam: Present: normal bowel sounds, soft, no peritoneal signs. Absent: distended, tenderness - Extremities Exam Extremities exam: Present: warm, radial pulses palpable and symmetrical. Absent : calf tenderness, cyanotic, pedal edema - Neurological Exam Neurological exam: Present: CN II-XII intact, oriented X3, no focal deficits. Absent: pronater drift, facial droop, speech deficit - Skin Skin exam: Present: dry, intact - Patient Status Disposition: Home, Self-Care Condition: Good Functional capacity at discharge: independent ambulation Overall status at discharge: patient is back to baseline - Discharge Instructions Follow Up With: Trupti Vanegas CNP [Primary Care Provider] - 05/09/18 11:00 am - Diet and Activity Activity: resume usual activities as tolerated Diet: low fat, low cholesterol, low salt diet
--- NOTE | 2018-05-03 17:27 | Electrocardiograph Report ---
[place] [id number] Test Date: 2018-05-01 Pat Name: Anita Lewis Department: 110 Room: 2N03 Gender: F Make Up Man: Alexandra : 1940 Requested By: Rochelle Juarez Order Number: [id number] Reading MD: Mathieu Moran Measurements Intervals [place] Rate: 74 P: 58 DC: 157 QRS: 17 QRSD: 94 T: 144 QT: 378 QTc: 405 Interpretive Statements SINUS RHYTHM ST DEVIATION AND MODERATE T-WAVE ABNORMALITY, CONSIDER ANTEROLATERAL ISCHEMIA Electronically Signed On 05-03-2018 17:25:28 EDT by Mathieu Moran
== END 2018-05-02 13:14 | disposition home or self-care (01) ==
LOC: 3BNU 06:29 → EMEROOARM 06:29 → SUATTDRO 08:40 → 3BNU 10:14 → 2NNU 17:27
PROVIDERS: ADMIT Internal Medicine; ATTEND Internal Medicine

== ENCOUNTER 2018-05-04 13:30 | Observation (INO) ==
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
[2018-05-04] MEDS ORDERED: Nitroglycerin 0.4 MG TAB.SUBL SL STA (14:05)
[2018-05-04] MEDS ORDERED: Aspirin 325 MG TABLET PO ONE (14:05)
[2018-05-04 14:15] LABS: Basophils % 0.5 %; Eosinophils # 0.4 K/mcL (0.0-0.6); Eosinophils % 4.5 %; Hematocrit 32.2 % (35.3-44.9); Hemoglobin 10.7 g/dL (11.5-15.4); Immature Granulocytes % 0.3 % (0-4); Lymphocytes # 1.7 K/mcL (0.6-4.6); Lymphocytes % 22.4 %; Mean Corpuscular HGB Conc 33.2 g/dL (31.6-35.5); Mean Corpuscular Volume 96.4 fL (83.0-100.0); Mean Platelet Volume 10.2 fL (9.4-12.4); Monocytes # 0.5 K/mcL (0.0-1.3); Monocytes % 6.8 %; Neutrophils # 5.1 K/mcL (1.6-8.9); Platelet Count 243 K/mcL (140-400); Red Blood Count 3.34 M/mcL (3.82-4.97); Red Cell Distribution Width 12.2 % (11.5-14.5); Segmented Neutrophils % 65.5 %
[2018-05-04 14:19] LABS: INR 1.1; Prothrombin Time 12.5 Seconds (9.4-12.1)
[2018-05-04 14:22] LABS: Activated Partial Thrombo Time 29.6 Seconds (26.0-36.0)
[2018-05-04 14:42] LABS: BUN/Creatinine Ratio 15 (6-26); Blood Urea Nitrogen 15 mg/dL (8-23); Calcium 9.7 mg/dL (8.6-10.3); Carbon Dioxide 27 mEq/L (23-29); Chloride 103 mEq/L (98-107); Glucose 121 mg/dL (70-105); Osmolality,Calculated 288 (280-300); Potassium 3.9 mEq/L (3.5-5.1); Sodium 138 mEq/L (136-145); eGFR For Non-African Americans 55 (> 60)
[2018-05-04 14:44] LABS: Troponin I 0.08 ng/mL (< 0.04)
--- NOTE | 2018-05-04 15:47 | Internal Med History&Physical ---
Date of Encounter: 05/04/18 Time of Encounter: 18:00 Internal Medicine - H&P: HPI Chief complaint: Chest pain radiating to left shoulder Admitted From: Emergency Dept Plans for Post Hospital Care: Home History of present illness: Ms. Lewis is a 77 year old female patient with history of coronary artery disease who recently underwent left heart catheterization with PCI for non-ST elevation AK 3 days back presented to the ER with complaints of chest pain. She reports that she has been having chest pain ever since her discharge. She had initially been having left-sided chest pain but that subsided. She is now having pain in her left shoulder and between her shoulder blades. She took Tylenol and nitroglycerin in the ER without any improvement in her symptoms. She continues to have slight pressure kind of pain at this time. She also reports symptoms of indigestion. No nausea or vomiting. No chest pain or palpitations. She occasionally gets lower extremity edema. Past Med Surg Social Fam HX - Past Medical History Medical history: CVA, hypertension, myocardial infarction, thyroid disease, TIA , other Additional medical history: colitis Psychiatric history: no psych history - Past Surgical History Surgical History: cholecystectomy, other Additional surgical history: skin cancer surgeries. Heart Stents x 4. Tubal Ligation - Social History Smoking Status: Never smoker Smokeless Tobacco Status: No Alcohol use: none Drug use: none - Family History Mother Hx Family Cardiac Disorders: Yes (HTN) Hx Family GI Disorders: Yes (Gallbladder) Hx Family Endocrine Disorder: Yes (DM) Father Hx Family Cardiac Disorders: Yes Hx Family Respiratory Disorders: Yes Hx Family Endocrine Disorder: Yes (DM) Internal Medicine - H&P: Meds Ascorbate Calcium [Vitamin C] 500 mg PO DAILY 04/30/18 [History] Biotin 1 mg PO DAILY 04/30/18 [History] Cholecalciferol (D-3) [Vitamin D] 1,000 unit PO DAILY 04/30/18 [History] Clopidogrel [Plavix] 75 mg PO DAILY 04/30/18 [History] Isosorbide MONOnitrate (24 HR) [Imdur] 30 mg PO DAILY 04/30/18 [History] Levothyroxine Sodium [Levoxyl] 88 mcg PO DAILY 04/30/18 [History] Loratadine [Claritin] 10 mg PO DAILY 04/30/18 [History] Losartan Potassium [Cozaar] 50 mg PO DAILY 04/30/18 [History] Magnesium Oxide [Magnesium] 400 mg PO DAILY 04/30/18 [History] Omeprazole Magnesium [Prilosec Otc] 20 mg PO HS 04/30/18 [History] Aspirin 81 mg PO DAILY #30 tab.chew 05/02/18 [Rx] Atorvastatin [Lipitor] 40 mg PO HS #30 tablet 05/02/18 [Rx] Cefdinir [Omnicef] 300 mg PO BID 3 Days #6 capsule 05/02/18 [Rx] Docusate [Colace] 100 mg PO BID PRN #60 capsule 05/02/18 [Rx] Metoprolol XL (24 HR) Succ [Toprol Xl] 50 mg PO DAILY #60 tab.er.24h 05/02/18 [ Rx] 3 Allergy/AdvReac Type Severity Reaction Status Date / Time Hydromorphone [From Dilaudid] AdvReac Blurry Verified 04/30/18 08:48 [facility] PM: A 10-system review of systems was performed and is negative for pertinent findings except as documented above in the HPI. - Constitutional Constitutional: no chills, no fever(s), no night sweats - EENT Eyes: no change in vision, no discharge, no pain, no photophobia Ears: no ear discharge, no ear pain, no tinnitus Nose, mouth and throat: no dysphagia, no nasal discharge, no neck pain, no sore throat - Cardiovascular Cardiovascular ROS IM: chest pain, no diaphoresis, no dyspnea, no lightheadedness, no palpitations, no syncope - Respiratory Respiratory: no cough, no dyspnea, no wheezing, no excessive phlegm production - Gastrointestinal Gastrointestinal: no abdominal pain, no diarrhea, no hematemesis, no hematochezia, no melena, no nausea, no vomiting - Genitourinary Genitourinary: no change in urinary stream, no dysuria, no flank pain, no hematuria - Musculoskeletal Musculoskeletal ROS IM: no numbness, no tingling - Integumentary Integumentary IM: no rash, no unusual bruising - Neurological Neurological ROS: no confusion, no convulsions, no focal weakness, no numbness, no tingling, no tremor(s) - Hematologic/Lymphatic Hematologic/Lymphatic: no easy bruising - Constitutional Vitals: Temp Pulse Resp BP Pulse Ox 98.2 F 64 16 164/75 96 05/04/18 13:43 05/04/18 13:43 05/04/18 13:43 05/04/18 13:43 05/04/18 13:43 General appearance: Present: cooperative, A&O X 3, answers questions appropriately Exam: General: Patient is alert, no acute distress, oriented x 3 Head: atraumatic, normocephalic, Eye: normal appearance, PERRL, no scleral icterus, no conjunctival injection Neck: normal inspection, trachea midline, full ROM, no carotid bruits Chest: normal inspection, symmetric chest rise Respiratory: Good respiratory effort. Normal breath sounds. No wheezing or crackles. Cardiovascular: Regular rate and rhythm. s1 and s2 normal No clicks, rubs, gallops, or murmurs. No pedal edema Abdomen: Abdomen is soft, nontender. Bowel sounds are present Musculoskeletal: Spontaneously moving all extremities Skin: Ecchymosis noted on the left lateral chest wall. Neuro: Alert oriented x 3 normal cranial nerves, no focal deficits Psych: Patient's affect is normal Internal Med - H&P Results - Labs CBC & Chem 7: 05/04/18 14:03 05/04/18 14:03 Labs: Short CBC 05/04/18 Range/Units 14:03 WBC 7.8 (4.3-11.1) K/mcL Hgb 10.7 L (11.5-15.4) g/dL Hct 32.2 L (35.3-44.9) % Plt Count 243 (140-400) K/mcL Neutrophils # 5.1 (1.6-8.9) K/mcL BMP 05/04/18 14:03 Sodium 138 Potassium 3.9 Chloride 103 Carbon Dioxide 27 BUN 15 Creatinine 0.98 Glucose 121 H Calcium 9.7 Cardiac Enzymes 05/04/18 Range/Units 14:03 Troponin I 0.08 H* (< 0.04) ng/mL - EKG Data EKG comments: 05/04/18 18:16 Shows T-wave inversions in anterolateral leads. Unchanged from prior EKG during last hospitalization. - Impressions ITS Impressions Chest X-Ray 05/04/18 13:53 IMPRESSION: 1. Stable enlarged heart size and mild central pulmonary vascular prominence. 2. New since the prior exam is mild left hemidiaphragm elevation which may relate to phrenic nerve injury with mild left lung base atelectasis. D/ / 05/04/2018 15:44:23 Jb Flowers MD / shivam Interpreting Provider: Jb Flowers MD - Assessment and plan (1) Chest pain Current Visit: Yes Status: Acute Assessment and plan: Atypical chest pain. Not relieved with nitroglycerin. Given her recent stent and coronary artery disease, will monitor overnight in the hospital. Trend troponins. Telemetry. Consult cardiology. No indication for intravenous heparin at this time. Continue aspirin, Plavix. Qualifiers: Chest pain type: other chest pain Qualified Code(s): R07.89 - Other chest pain; R07.8 - Other chest pain (2) Elevated troponin Current Visit: Yes Status: Acute Assessment and plan: Troponin elevated at 0.08. This actually trending down from her last hospitalization. We will monitor. (3) UTI (urinary tract infection) Current Visit: Yes Status: Acute Assessment and plan: Patient diagnosed with cystitis during last hospitalization stay. She was placed on Omnicef. Will complete antibiotic course. Qualifiers: Urinary tract infection type: acute cystitis Hematuria presence: without hematuria Qualified Code(s): N30.00 - Acute cystitis without hematuria (4) CAD (coronary artery disease) Current Visit: Yes Status: Chronic Assessment and plan: Continue aspirin, Plavix, Lipitor, Imdur, losartan and metoprolol. Qualifiers: Coronary Disease-Associated Artery/Lesion type: [place]omon artery [place] vs. transplanted heart: solomon heart Associated angina: with unstable angina Qualified Code(s): I25.110 - Atherosclerotic heart disease of solomon coronary artery with unstable angina pectoris (5) HTN (hypertension) Current Visit: Yes Status: Chronic Assessment and plan: Blood pressure is elevated. Resume home medications. Monitor blood pressure closely. Qualifiers: Hypertension type: essential hypertension Qualified Code(s): I10 - Essential (primary) hypertension (6) Hypothyroidism Current Visit: Yes Status: Chronic Assessment and plan: Continue levothyroxine. Qualifiers: Hypothyroidism type: other Qualified Code(s): E03.8 - Other specified hypothyroidism - Time Spent With Patient Total time spent is greater than 50% in coordination of care (as documented) at patient's floor/unit and/or counseling patient:
[2018-05-04] MEDS: Cefdinir 300 MG CAPSULE PO SCH (19:47)
[2018-05-05] MEDS ORDERED: *HR* Heparin 5,000 UNIT/ML VIAL SQ SCH (06:00)
[2018-05-05] MEDS ORDERED: Aspirin 81 MG TAB.CHEW PO SCH (09:00)
[2018-05-05] MEDS ORDERED: Cholecalciferol (D-3) 1,000 UNIT TABLET PO SCH (09:00)
[2018-05-05] MEDS ORDERED: Ascorbic Acid 500 MG TABLET PO SCH (09:00)
[2018-05-05] MEDS ORDERED: Loratadine 10 MG TABLET PO SCH (09:00)
[2018-05-05] MEDS ORDERED: Metoprolol XL (24 HR) Succ 25 MG TAB.ER.24H PO SCH (09:00)
[2018-05-05] MEDS ORDERED: Magnesium Oxide 400 MG TABLET PO SCH (09:00)
[2018-05-05] MEDS ORDERED: Isosorbide MONOnitrate (24 HR) 30 MG TAB.ER.24H PO SCH (09:00)
--- NOTE | 2018-05-05 09:50 | Cardiology Consult Note ---
Date of Encounter: 05/05/18 Time of Encounter: 08:50 Assessment and Plan (1) Chest pain due to CAD Current Visit: No Status: Acute Patients symptoms of occured on the background of residual coronary artery disease. Acutely recent emotional upheavals and uncontrolled blood pressure may have triggered current episode. Troponin was 0.10 at discharge and now 0.12 and stable. EKG shows sinus rhythm with ST-T abnormalities in the anterolateral leads unchanged from May 01, 2018. Echocardiogram on discharge showed preserved ejection fraction. We recommend optimization of medical therapy by increasing Imdur from 30 mg to 60 mg daily. Toprol-XL, can also be increased from 50 mg daily to 100 mg daily. Continue aspirin 81 mg daily, Plavix 75 mg daily, losartan 50 mg daily , Lipitor 40 mg daily. (2) HTN (hypertension) Current Visit: Yes Status: Chronic Follow recommendations above. Qualifiers: Hypertension type: essential hypertension Qualified Code(s): I10 - Essential (primary) hypertension Discussion w patient/family: The assessment and plan as outlined above was discussed with the patient and/or family members who expressed understanding and agreement. All questions were answered. Thank you for involving us in the care of your patient. Please call with any questions. History of Present Illness Consult date: 05/05/18 Requesting physician: Deb Byrne Consult reason: Chest pain Chief complaint: Chest pain History of present illness: Ms. Lewis is a 77 year old female with past medical history of RI and PCI in 2013, HTN, and HLD, who was admitted for unstable angina 5 days ago. She received PCI to first diagonal, ramus intermedius and left circumflex arteries. She did have residual disease 40% stenosis in the distal circumflex and diffuse 40% disease in the right coronary artery, within 99% stenosis in the right PDA which is a small vessel. However, she presents with intermittent chest pain at rest that started on Sunday. It was dull aching radiating to the shoulder and felt like the pain she had prior to the last angiogram. Of note, on that day she received news of the passing away of her sister in law, and also her daughter being involved in a car accident. She took Tylenol at home without much improvement. Upon presentation to the emergency room she was given sublingual nitroglycerin with modest improvements. Also her blood pressure was uncontrolled with SBP in the 160s. No history of palpitations or shortness of breath. No cough,orthopnea or PND. At this time, she is chest pain-free. Past Med Surg Social Fam HX - Past Medical History Medical history: CVA, hypertension, myocardial infarction, thyroid disease, TIA , other Additional medical history: colitis Psychiatric history: no psych history - Past Surgical History Surgical History: cholecystectomy, other Additional surgical history: skin cancer surgeries. Heart Stents x 4. Tubal Ligation - Social History Smoking Status: Never smoker Smokeless Tobacco Status: No Alcohol use: none Drug use: none - Family History Mother Hx Family Cardiac Disorders: Yes (HTN) Hx Family GI Disorders: Yes (Gallbladder) Hx Family Endocrine Disorder: Yes (DM) Father Hx Family Cardiac Disorders: Yes Hx Family Respiratory Disorders: Yes Hx Family Endocrine Disorder: Yes (DM) Medications and Allergies Ascorbate Calcium [Vitamin C] 500 mg PO DAILY 04/30/18 [History] Biotin 1 mg PO DAILY 04/30/18 [History] Cholecalciferol (D-3) [Vitamin D] 1,000 unit PO DAILY 04/30/18 [History] Clopidogrel [Plavix] 75 mg PO DAILY 04/30/18 [History] Isosorbide MONOnitrate (24 HR) [Imdur] 30 mg PO DAILY 04/30/18 [History] Levothyroxine Sodium [Levoxyl] 88 mcg PO DAILY 04/30/18 [History] Loratadine [Claritin] 10 mg PO DAILY 04/30/18 [History] Losartan Potassium [Cozaar] 50 mg PO DAILY 04/30/18 [History] Magnesium Oxide [Magnesium] 400 mg PO DAILY 04/30/18 [History] Omeprazole Magnesium [Prilosec Otc] 20 mg PO HS 04/30/18 [History] Aspirin 81 mg PO DAILY #30 tab.chew 05/02/18 [Rx] Atorvastatin [Lipitor] 40 mg PO HS #30 tablet 05/02/18 [Rx] Cefdinir [Omnicef] 300 mg PO BID 3 Days #6 capsule 05/02/18 [Rx] Docusate [Colace] 100 mg PO BID PRN #60 capsule 05/02/18 [Rx] Metoprolol XL (24 HR) Succ [Toprol Xl] 50 mg PO DAILY #60 tab.er.24h 05/02/18 [ Rx] 3 Allergy/AdvReac Type Severity Reaction Status Date / Time Hydromorphone [From Dilaudid] AdvReac Blurry Verified 04/30/18 08:48 [facility] All Systems Review: The remainder of the systems were reviewed and are negative - Constitutional Constitutional: no anorexia, no chills, no fever(s) - EENT Eyes: no blurred vision Nose, mouth and throat: no bleeding gums, no dysphagia, no odynophagia - Cardiovascular Cardiovascular: as per HPI - Respiratory Respiratory: no cough, no wheezing - Gastrointestinal Gastrointestinal: no abdominal pain, no hematochezia - Genitourinary Genitourinary: no dysuria - Musculoskeletal Musculoskeletal: no abnormal gait - Neurological Neurological: no abnormal speech, no focal weakness - Psychiatric Psychiatric: no anxiety Physical Examination Vital Signs, Last 4 Hours Temp Pulse Resp BP Pulse Ox 05/05/18 07:21 98.6 F 67 15 162/75 95 General: Conversant, No Apparent Distress HEENT: Atraumatic Neck: No JVD Cardiac: Reg Rate and Rhythm, Normal S1 and S2 Lungs: Normal Breath Sounds, No Wheeze, Rales, Rhonchi Neuro: Alert and responsive Abdomen: Non-Tender Musculoskeletal: No Chest Wall Tenderness Extremities: Other (Mild pedal edema) Results 05/04/18 14:03 05/04/18 14:03 Lab Results 05/04/18 05/05/18 19:42 00:55 Troponin I 0.12 H* 0.12 H* - EKG Interpretation EKG results cardiology: personally reviewed Consult Discharge Plan - Plan
--- NOTE | 2018-05-05 09:55 | Electrocardiograph Report ---
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
--- NOTE | 2018-05-05 09:56 | Electrocardiograph Report ---
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
[2018-05-05] MEDS: Cefdinir 300 MG CAPSULE PO SCH (10:01)
--- NOTE | 2018-05-05 12:00 | Discharge Summary ---
- NOTES TO OUTPATIENT PROVIDER Notes to Outpatient Provider: Patient was hospitalized here left-sided chest pain and left shoulder pain radiating to her back. Troponins were slightly above normal. She had recently undergone left heart catheterization 2 days prior to this hospitalization. As such cardiology was consulted. They recommended that she increase her metoprolol dosage and Imdur dosage for now and follow up as outpatient with cardiology. Her troponins have remained adynamic. No further cardiac workup needed at this time. She will be discharged home today. Date of Encounter: 05/05/18 Time of Encounter: 11:56 - Discharge Diagnosis (1) Chest pain Priority: Primary Status: Resolved Qualifiers: Chest pain type: other chest pain Qualified Code(s): R07.89 - Other chest pain; R07.8 - Other chest pain (2) Elevated troponin Priority: Secondary Status: Acute (3) UTI (urinary tract infection) Priority: Secondary Status: Resolved Qualifiers: Urinary tract infection type: acute cystitis Hematuria presence: without hematuria Qualified Code(s): N30.00 - Acute cystitis without hematuria (4) CAD (coronary artery disease) Priority: Secondary Status: Chronic Qualifiers: Coronary Disease-Associated Artery/Lesion type: [place] artery [place] vs. transplanted heart: [place] heart Associated angina: with unstable angina Qualified Code(s): I25.110 - Atherosclerotic heart disease of [place] coronary artery with unstable angina pectoris (5) HTN (hypertension) Priority: Secondary Status: Chronic Qualifiers: Hypertension type: essential hypertension Qualified Code(s): I10 - Essential (primary) hypertension (6) Hypothyroidism Priority: Secondary Status: Chronic Qualifiers: Hypothyroidism type: other Qualified Code(s): E03.8 - Other specified hypothyroidism Hospital course: Ms. Lewis is a 77 year old female Patient with a history of hypertension, coronary artery disease who was hospitalized here left-sided chest pain and left shoulder pain radiating to her back. Troponins were slightly above normal. She had recently undergone left heart catheterization 2 days prior to this hospitalization. As such cardiology was consulted. They recommended that she increase her metoprolol dosage and Imdur dosage for now and follow up as outpatient with cardiology. Her troponins have remained adynamic. No further cardiac workup needed at this time. She will be discharged home today. Discharge discussed with: patient, international travel consultant - Time Spent with Patient Total time spent providing and/or coordinating discharge services: Less than 30 minutes (25 min) - Discharge Medications Prescriptions: Nitroglycerin 0.4 mg SL Q5MIN PRN #30 tab.subl PRN Reason: Chest Pain Isosorbide MONOnitrate (24 HR) [Imdur] 60 mg PO DAILY #30 tab.er.24h Metoprolol Succinate [Toprol Xl] 100 mg PO DAILY #30 tab.er.24h Home Medications: Ascorbate Calcium [Vitamin C] 500 mg PO DAILY 04/30/18 [History] Biotin 1 mg PO DAILY 04/30/18 [History] Cholecalciferol (D-3) [Vitamin D] 1,000 unit PO DAILY 04/30/18 [History] Clopidogrel [Plavix] 75 mg PO DAILY 04/30/18 [History] Levothyroxine Sodium [Levoxyl] 88 mcg PO DAILY 04/30/18 [History] Loratadine [Claritin] 10 mg PO DAILY 04/30/18 [History] Losartan Potassium [Cozaar] 50 mg PO DAILY 04/30/18 [History] Magnesium Oxide [Magnesium] 400 mg PO DAILY 04/30/18 [History] Omeprazole Magnesium [Prilosec Otc] 20 mg PO HS 04/30/18 [History] Aspirin 81 mg PO DAILY #30 tab.chew 05/02/18 [Rx] Atorvastatin [Lipitor] 40 mg PO HS #30 tablet 05/02/18 [Rx] Docusate [Colace] 100 mg PO BID PRN #60 capsule 05/02/18 [Rx] Isosorbide MONOnitrate (24 HR) [Imdur] 60 mg PO DAILY #30 tab.er.24h 05/05/18 [ Rx] Metoprolol Succinate [Toprol Xl] 100 mg PO DAILY #30 tab.er.24h 05/05/18 [Rx] Nitroglycerin 0.4 mg SL Q5MIN PRN #30 tab.subl 05/05/18 [Rx] Allergies/Adverse Reactions: 3 Allergy/AdvReac Type Severity Reaction Status Date / Time Hydromorphone [From Dilaudid] AdvReac Blurry Verified 04/30/18 08:48 [facility] Date of admission: 05/04/18 16:25 Primary care physician: Trupti Vanegas CNP Consults: 05/04/18 14:59 Consult to Cardiology [CONS] Stat Comment: Consulting Provider: Cardiology Angela Reason for Consult: Chest pain, recent stent x3 Time Notified: 14:59 Call Completed: Yes Discharging clinician: Latisha Ac Anticipated date of discharge: 05/05/18 - Constitutional Vitals: Temp Pulse Resp BP Pulse Ox 98.6 F 67 15 162/75 95 05/05/18 07:21 05/05/18 07:21 05/05/18 07:21 05/05/18 07:21 05/05/18 07:21 General appearance: Present: cooperative, A&O X 3, answers questions appropriately Exam: . - Neck Neck exam general surgery: Present: supple, trachea midline. Absent: lymphadenopathy - Respiratory Respiratory exam: Present: CTAB. Absent: accessory muscle use, rales, rhonchi, wheezes - Cardiovascular Cardiovascular exam: Present: RRR, +S1, +S2. Absent: diastolic murmur, gallop, rubs, systolic murmur - GI/Abdominal GI/Abdominal exam: Present: normal bowel sounds, soft, no peritoneal signs. Absent: distended, tenderness - Extremities Exam Extremities exam: Present: warm, radial pulses palpable and symmetrical. Absent : calf tenderness, cyanotic, pedal edema - Patient Status Disposition: Home, Self-Care Condition: Good Functional capacity at discharge: independent ambulation Overall status at discharge: patient is progressing back to baseline - Discharge Instructions Instructions: Chest Pain (DC), Hypothyroidism (DC), Chronic Hypertension (DC) Follow Up With: Trupti Vanegas [employer] [Primary Care Provider] - (Please follow up with PCP in 1- 2 weeks) Forms: ED Satisfaction Letter Additional Instructions: Follow-up with cardiology as scheduled - Diet and Activity Activity: increase activity as tolerated Diet: low fat, low cholesterol, low salt diet
[2018-05-05 12:09] VITALS: BP 123/72
== END 2018-05-05 14:30 | disposition home or self-care (01) ==
LOC: 3BNU 13:30 → EMEROOARM 13:30 → SUATTDRO 16:25 → 3BNU 16:49
PROVIDERS: ADMIT Internal Medicine; ATTEND Internal Medicine